=== PATIENT | female | born 1960 | race Caucasian/White ===

== ENCOUNTER 2025-06-16 19:46 | Emergency (ER) | payer MEDICARE, OTHER, SELFPAY ==
[2025-06-16 19:52] VITALS: BP 168/66; PULSE 65; TEMP 36.7; O2SAT 99; BMI 29.1
--- NOTE | 2025-06-16 20:00 | PC.NURSE ---
3 puncture wounds to RLE, wounds with serous drainage noted to old dressing, pain and redness surrounding sites.
--- NOTE | 2025-06-16 20:13 | ED.GENADUL1 ---
HPI HPI - General Adult General Chief complaint: Extremity Injury, Lower Stated complaint: INJURY TO R ANKLE Time Seen by Provider: 06/16/25 19:51 Source: patient Mode of arrival: walk-in History of Present Illness HPI narrative: The patient is a 65-year-old female who presents to the emergency department today for evaluation concerns for an infected wound. She reports 2 days ago she was attacked by her rooster and mention she has 2 wounds to the anterior aspect of her right lower leg that she has been applying triple antibiotic and peroxide on with no improvement. She reports some redness and swelling around the sites of these puncture wounds. No sick symptoms of fevers or nausea/vomiting. She states she is diabetic and does have blood glucoses in the 150s. Related Data Previous Rx's ?Medication ?Instructions ?Recorded cephalexin 500 mg capsule 500 mg PO BID 7 days #14 caps 06/16/25 Allergies Allergy/AdvReac Type Severity Reaction Status Date / Time [id number] Reductase AdvReac Muscle Pain Verified 06/16/25 19:55 Inhibitor Review of Systems ROS Status of ROS 10 or more systems reviewed and unremarkable except as noted in history and below PFSH PFSH Social History Little interest or pleasure in doing things: not at all Feeling down, depressed, or hopeless: not at all Exam Narrative Exam Narrative: Constituational: Awake/ alert, no apparent distress, well hydrated HENMT: normocephalic, external ears normal, moist oral mucous membranes and oropharynx normal Eyes: EOMI and conjunctivae normal Neck: ROM intact Chest: inspection of chest normal Respiratory: Normal respiratory effort MSK: ROM intact, +NVI Skin: + Abrasions x 2 to distal aspect of the anterior R lower leg with surrounding erythema, no wound drainage. No rashes or petechiae Neuro: no focal deficits Psych: mental status grossly normal Constitutional Vital Signs, click to edit/add: Last Vital Signs Temp 98.0 F 06/16/25 19:52 Pulse 65 06/16/25 19:52 Resp 20 06/16/25 19:52 BP 168/66 H 06/16/25 19:52 Pulse Ox 99 06/16/25 19:52 O2 Del Method Room Air 06/16/25 19:52 Course Vital Signs Vital signs: Vital Signs Temperature 98.0 F 06/16/25 19:52 Pulse Rate 65 06/16/25 19:52 Respiratory Rate 20 06/16/25 19:52 Blood Pressure 168/66 H 06/16/25 19:52 Pulse Oximetry 99 06/16/25 19:52 Oxygen Delivery Method Room Air 06/16/25 19:52 Temperature 98.0 F 06/16/25 19:52 Pulse Rate 65 06/16/25 19:52 Respiratory Rate 20 06/16/25 19:52 Blood Pressure 168/66 H 06/16/25 19:52 Pulse Oximetry 99 06/16/25 19:52 Oxygen Delivery Method Room Air 06/16/25 19:52 Medical Decision Making MDM Narrative Medical decision making narrative: The patient is a well-appearing 65-year-old female who presented to the emergency department today for evaluation of concerns for a wound infection 2/2 being attacked by her rooster. Initial examination patient with clinical evidence consistent with cellulitis to the anterior aspect of the distal right lower leg. No evidence of abscess. Historically patient has been applying peroxide and triple antibiotic ointment to the site and there is some evidence that the skin may be irritated due to the topicals being placed on the skin for the wound care that was being performed prior to evaluation tonight. Additionally no concerning neurovascular or motor findings on exam. Discussed the above findings with the patient including recommendations for supportive care. Will discharge home with cephalexin. Advised on Vaseline and covering with a dry dressing for the next 48 hours. Discussed signs and symptoms of any worsening condition and when to consider reevaluation by the emergency department. Patient verbalized an understanding of this and is agreeable with the plan to be discharged home. Medical Records Medical records reviewed: Yes I reviewed the patient's medical records Discharge Plan Discharge Chief Complaint: Extremity Injury, Lower Clinical Impression: Cellulitis Patient Disposition: Home, Self-Care Prescriptions / Home Meds: New cephalexin 500 mg capsule 500 mg PO BID 7 Days Qty: 14 0RF Print Language: Polish Instructions: Cellulitis (ED) Additional Instructions: Take antibiotics as prescribed. May take Tylenol or ibuprofen for pain. Recommend Vaseline and covering with a dry dressing for the next 48 hours. Avoid triple antibiotic and peroxide as this may be irritating your skin. Please follow with your primary care provider for reevaluation as discussed. Referrals: Physician,Non-Staff, MD [Primary Care Provider] - 1 week Discharge Date/Time: 06/16/25 20:34
== END 2025-06-16 20:34 | disposition home or self-care (01) ==
PROVIDERS: Emergency Provider Internal Medicine; Family Provider Internal Medicine Cardiovascular Disease; PCP Family Medicine
DX: L03.115 Cellulitis of right lower limb (principal); E11.9 Type 2 diabetes mellitus without complications
CPT/HCPCS: 99283